=== PATIENT | female | born 1955 | race Caucasian/White ===

== ENCOUNTER 2022-12-22 14:46 | Outpatient (CLI) | payer MEDICARE, BC, SELFPAY ==
--- NOTE | 2022-12-22 15:00 | CRLHL7_ITS ---
For Patients: As a result of the Century Cures Act, medical imaging exams and procedure reports are released immediately into your electronic medical record. You may view this report before your referring provider. If you have questions, please contact your health care provider. INDICATION: RT LE SWELLING POST SPINAL FUSION COMPARISON: None. TECHNIQUE: A compression venous ultrasound exam was performed of the right lower extremity using rodarte-scale imaging, color Doppler and spectral Doppler analysis. FINDINGS: Sonographic imaging of the right lower extremity demonstrates normal compressibility and color Doppler venous blood flow within the common femoral vein, deep femoral vein, and the proximal greater saphenous vein. Within the thigh, the femoral vein is patent and compressible. At a lower level, the popliteal and posterior tibial veins also show normal compressibility and color Doppler venous blood flow. Limited imaging of the contralateral groin demonstrates a normal spectral waveform and color Doppler venous blood flow within the left common femoral vein. IMPRESSION: Normal venous ultrasound exam. No evidence of deep vein thrombosis within the right lower extremity. Dictated by Fitz Escalera MD @ 12/22/2022 3:57:58 PM (Electronically Signed)
== END 2022-12-22 14:47 | disposition home or self-care (01) ==
PROVIDERS: PCP Surgery
DX: M79.604 Pain in right leg (principal); M79.89 Other specified soft tissue disorders; Z98.1 Arthrodesis status
CPT/HCPCS: 93971

== ENCOUNTER 2023-07-29 09:43 | Outpatient (CLI) | payer MEDICARE, BC, SELFPAY ==
--- NOTE | 2023-07-29 10:00 | CRLHL7_ITS ---
For Patients: As a result of the Century Cures Act, medical imaging exams and procedure reports are released immediately into your electronic medical record. You may view this report before your referring provider. If you have questions, please contact your health care provider. Indication: LOW BACK PAIN S/P LUMBAR FUSION Technique: Noncontrast axial CT of the lumbar spine with coronal and sagittal reformats are provided. Comparison: No prior studies are available for comparison at this institution. Findings: Postoperative changes of L4-5 and L5-S1 laminectomy, posterior instrumented fusion with pedicle screws at L4 and S1 with bilateral iliac screw fixation. Interbody cage and screw fixation at L4-5 and L5-S1. No evidence of hardware complication. Mild exaggeration of lumbar lordosis. Retrolisthesis at L1-2 and L2-3. No fractures. No prevertebral or paraspinal edema. Atherosclerotic calcifications in the abdominal aorta. T12-L1: No significant spinal canal stenosis or neural foramen narrowing. L1-2: No significant spinal canal stenosis or neural foramen narrowing. L2-3: Severe disc height loss, slight retrolisthesis. No significant spinal canal stenosis or neural foramen narrowing. L3-4: Circumferential disc bulge. Mild spinal canal narrowing and mild bilateral neural foramina narrowing. L4-5: Postoperative changes. The spinal canal is adequate. Mild bilateral neural foramen narrowing. L5-S1: Postoperative changes. The spinal canal is adequate. Moderate bony left neural foramina narrowing. No right neural foramen narrowing. Impression: 1. No convincing radiographic evidence of acute osseous injury. 2. Mild scattered degenerative changes of the lumbar spine. 3. Postoperative changes of L4-5 and L5-S1 laminectomy, posterior instrumented fusion with pedicle screws at L4 and S1 with bilateral iliac screw fixation. Interbody cage and screw fixation at L4-5 and L5-S1. No evidence of hardware complication. Please note that all CT scans at this facility use dose modulation, iterative reconstruction, and/or weight-based dosing when appropriate to reduce radiation dose to as low as reasonably achievable. Dictated by Fitz Hobbs MD @ 07/29/2023 12:13:28 PM (Electronically Signed)
== END 2023-07-29 09:44 | disposition home or self-care (01) ==
LOC: CT 09:44
PROVIDERS: PCP Surgery; Visit Provider Physician Assistant
DX: M54.50 Low back pain, unspecified (principal); Z98.1 Arthrodesis status
CPT/HCPCS: 72131

== ENCOUNTER 2023-10-06 14:05 | Emergency (ER) | payer MEDICARE, BC, SELFPAY ==
[2023-10-06 14:17] VITALS: BP 134/81; PULSE 92; RESP 16; TEMP 36.4; O2SAT 96; BMI 35.2
--- NOTE | 2023-10-06 14:40 | CRLHL7_ITS ---
For Patients: As a result of the Century Cures Act, medical imaging exams and procedure reports are released immediately into your electronic medical record. You may view this report before your referring provider. If you have questions, please contact your health care provider. Indication: Postsurgical fluid collection. Technique: Ultrasound abdomen limited with color Doppler analysis. Comparison: None. Findings/Impression: In the right lumbar area of concern is a fluid collection measuring 7 x 3 x 2 cm. This likely represents a postoperative seroma. No inflammation associated with the fluid collection. No other abnormality. Dictated by Jesse Zavaleta MD @ 10/06/2023 3:33:35 PM (Electronically Signed)
--- NOTE | 2023-10-06 14:41 | ED_ITS ---
HPI - General Adult General Time Seen by Provider: 14:42 Date Seen: 10/06/23 Chief complaint: Back Injury/Pain Stated complaint: Ilieac edwin removed 09/29-now large lump back- Time Seen by Provider: 10/06/23 14:08 Source: patient Mode of arrival: ambulatory Limitations: no limitations History of Present Illness HPI narrative: [age] year white female that had back surgery about a year ago with a lumbar fusion, had recently increased pain in her right low back and had a screw moved and that was about within the last month. Since then she has had some swelling in the area she has had ice it, more recently she has developed a little bit of chills and fever. She notices the area is tender. She had this done at [facility] with . She has not contacted her surgical clinic. She is concerned about infection. The area is not really reddened but it is tender. And it has been swollen for period of time. No leg swelling or edema, bleeding or other problems. Related Data Home Medications Medication Instructions Recorded Confirmed ascorbate calcium (vitamin C) 814 mg PO 07/01/22 02/03/23 mg/gram oral powder (Vitamin C (ascorbate calcium)) lovastatin 40 mg tablet 40 mg PO .Bedtime 07/01/22 10/06/23 levothyroxine 125 mcg tablet 125 mcg PO DAILY 02/03/23 10/06/23 omeprazole 20 mg capsule,delayed 20 mg PO DAILY 10/06/23 10/06/23 release Previous Rx's Medication Instructions Recorded amoxicillin 875 mg-potassium 1 tab PO BID #14 tabs 10/06/23 clavulanate 125 mg tablet Allergies Allergy/AdvReac Type Severity Reaction Status Date / Time hydrocodone Allergy Intermediate heart Verified 10/06/23 14:15 racing Review of Systems Status of ROS: Reports: 6 or more systems reviewed and unremarkable except as noted in History and below [facility] Medical History Pain in lateral right lower extremity ?M79.604 - Pain in right leg (ICD-10) Osteopenia ?M85.80 - Other specified disorders of bone density and structure, unspecified site (ICD-10) Osteoarthritis of lumbar spine ?M47.816 - Spondylosis without myelopathy or radiculopathy, lumbar region (ICD-10) Normal Papanicolaou smear Mixed hyperlipidemia ?E78.2 - Mixed hyperlipidemia (ICD-10) Hypothyroidism ?E03.9 - Hypothyroidism, unspecified (ICD-10) History of amputation of right hand (1995) ?Z89.111 - Acquired absence of right hand (ICD-10) Gastroesophageal reflux disease with esophagitis ?K21.00 - Gastro-esophageal reflux disease with esophagitis, without bleeding (ICD-10) Amputation of right index finger ?S68.110A - Complete traumatic metacarpophalangeal amputation of right index finger, initial encounter (ICD-10) Surgical History H/O spinal fusion ?Z98.1 - Arthrodesis status (ICD-10) Status post tubal ligation ?Z98.51 - Tubal ligation status (ICD-10) History of lumpectomy of right breast ?Z98.890 - Other specified postprocedural states (ICD-10) History of colonoscopy (05/12/18) ?Z98.890 - Other specified postprocedural states (ICD-10) Family History Maternal Grandmother Breast cancer Diabetes Father Stroke Social History Narrative: Does not exercise Ex-smoker- quit 2017, 40 pack years , retired [employer], 3 adult kids Rarely consumes alcohol Stress due to illness of family member Smoking Status: Former smoker Exam Narrative: Exam Narrative: Objective: Vital signs unremarkable afebrile Patient is alert oriented no distress Postoperative changes noted in her lumbar spine, vertical incision, and also a right a vertical incision that is quite small preps for 5 cm long that overlies the area of swelling. Mildly tender to touch, not really warm or red. There is some fluctuance in the area but feels more fluid like then abscess . Const: Vital Signs, click to edit/add: Vital Signs - 24 hr 10/06/23 14:17 10/06/23 15:38 10/06/23 16:18 Temperature 97.5 F L Pulse Rate [Pulse Oximeter] 92 84 78 Respiratory Rate 16 20 20 Blood Pressure [Le ft Upper Arm] 134/81 113/80 122/72 Pulse Oximetry 96 96 96 Oxygen Delivery Me thod Room Air Room Air Room Air Course Vital Signs Vital signs: Initial Vital Signs Temperature 97.5 F L 10/06/23 14:17 Temperature Source Temporal Artery Scan 10/06/23 14:17 Pulse Rate 92 10/06/23 14:17 Pulse Rhythm Regular 10/06/23 14:17 Pulse Strength 3+ Normal 10/06/23 14:17 Respiratory Rate 16 10/06/23 14:17 Blood Pressure 134/81 10/06/23 14:17 Blood Pressure Mean 98 10/06/23 14:17 Blood Pressure Position Sitting 10/06/23 14:17 Pulse Oximetry 96 10/06/23 14:17 Oxygen Delivery Method Room Air 10/06/23 14:17 Vital Signs Temperature 97.5 F L 10/06/23 14:17 Pulse Rate 92 10/06/23 14:17 Respiratory Rate 16 10/06/23 14:17 Blood Pressure 134/81 10/06/23 14:17 Pulse Oximetry 96 10/06/23 14:17 Oxygen Delivery Method Room Air 10/06/23 14:17 Temperature 97.5 F L 10/06/23 14:17 Pulse Rate 78 10/06/23 16:18 Respiratory Rate 20 10/06/23 16:18 Blood Pressure 122/72 10/06/23 16:18 Pulse Oximetry 96 10/06/23 16:18 Oxygen Delivery Method Room Air 10/06/23 16:18 Medications Administered Medications: Discontinued Medications Generic Name Dose Route Start Last Admin Trade Name Freq PRN Reason Stop Dose Admin Ceftriaxone Sodium 500 mg 10/06/23 15:49 10/06/23 16:12 Ceftriaxone 500 Mg Vial IM 10/06/23 15:50 500 mg ONCE ONE Administration Lidocaine HCl 1 ml 10/06/23 15:49 10/06/23 16:12 Lidocaine 1% 5 Ml (Pf) 5 Ml Vial IM 1 ml DIRECTED PRN Administration Pain Medical Decision Making [facility] Narrative Medical decision making narrative: [age] year white female nondiabetic with 1 year history of spinal fusion, with recent 1 month ago so screw removal for increased pain. Now with persistent swelling and pain. Liquid be appropriate ultrasound the area, get blood cultures, get labs and CRP. Likely antibiotics and may need follow-up with spine surgery. Will see what the ultrasound shows well as her lab studies. Addendum 3:47 p.m.: The ultrasound does not show any inflammation around what appears to be a seroma. Her CRP is elevated but she did have a screw removed about 3 weeks ago from her back. She did have blood cultures done, the area does not appear warm or infected. However she could have some mild infection the seroma and I think covering her with a dose of Rocephin and then Augmentin orally for 7 days would be appropriate. I would recommend she see our spine surgeons regarding treatment of this seroma. Return if problems concerns difficulty or if blood cultures returned positive. She is comfortable this plan. She will contact the surgical team for her back tomorrow or later today when she goes home. Also given there is hardware in place I am not attempted to drain the area because it does not appear infected at this time Mk titus and when heat introduce infection around hardware implements. Lab Data Labs: Lab Results 10/06/23 Range/Units 14:53 WBC 10.62 (4.50-11.00) K/uL RBC 4.21 (4.00-5.20) m/uL Hgb 12.6 (12.0-16.0) gm/dL Hct 38.7 (33.0-51.0) % MCV 92 (80-100) fL MCH 30 (26-34) pg MCHC 33 (32-36) gm/dL RDW Coeff of Megan 15.3 (11.5-15.5) % Plt Count 371 (140-440) K/uL Neut % (Auto) 66.6 (42.0-72.0) % Lymph % (Auto) 21.9 (20-44) % [place] % (Auto) 7.8 (0.0-11.0) % Eos % (Auto) 2.6 (0.0-7.0) % Baso % (Auto) 0.3 (0.0-3.0) % Neut # (Auto) 7.07 H (1.7-7.0) K/uL Lymph # (Auto) 2.33 (0.90-2.90) K/uL [place] # (Auto) 0.80 (0.00-0.90) K/UL Eos # (Auto) 0.28 (0.00-0.50) K/uL Baso # (Auto) 0.03 (0.00-0.30) K/uL Abs Immat Gran (auto) 0.08 (0.00-0.30) K/uL Imm/Tot Granulo (auto) 0.8 % Sodium 143 (135-149) mmol/L Potassium 4.0 (3.6-5.1) mmol/L Chloride 109 (96-114) mmol/L Carbon Dioxide 26 (20-32) mmol/L Anion Gap 8 (7-15) mEq/L BUN 25 (7-30) mg/dL Creatinine 0.8 (0.5-1.5) mg/dL Estimated Creat Clear 46.50 Estimated GFR 80 ml/min Glucose 114 (60-115) mg/dL Calcium 9.3 (8.4-10.6) mg/dL C-Reactive Protein 14.5 H (0.5-1.0) mg/dL Discharge Plan Discharge Clinical Impression: Lumbar surgical wound fluid collection Patient Disposition: Home, Self-Care Condition: Stable Additional Instructions: Antibiotic injection in the ER, now Augmentin 2 times a day for the next 7 days. Call your surgical team and have an appointment within the next few days regarding this swelling, return to ED sooner problems or concerns. Activity Level: Light activity Discharge Diet: Regular Prescriptions: New amoxicillin-pot clavulanate 875-125 mg tablet 1 tab PO BID Qty: 14 0RF No Action lovastatin 40 mg tablet 40 mg PO .Bedtime Vitamin C (ascorbate calcium) 814 mg/gram powder PO levothyroxine 125 mcg tablet 125 mcg PO DAILY omeprazole 20 mg capsule,delayed release(DR/EC) 20 mg PO DAILY Follow Up/Referrals: Thang Rubio MD [Primary Care Provider] - Stand Alone Forms: NameMedia Info Instructions
[2023-10-06 15:05] LABS: Basophils Absolute Auto 0.03 K/uL (0.00-0.30); Basophils Percent Auto 0.3 % (0.0-3.0); Eosinophils Absolute Auto 0.28 K/uL (0.00-0.50); Eosinophils Percent Auto 2.6 % (0.0-7.0); Hematocrit 38.7 % (33.0-51.0); Hemoglobin* 12.6 gm/dL (12.0-16.0); Immature Granulocytes Abs Auto 0.08 K/uL (0.00-0.30); Immature Granulocytes Pct Auto 0.8 %; Lymphocytes Absolute Auto 2.33 K/uL (0.90-2.90); Lymphocytes Percent Auto 21.9 % (20-44); Mean Corpuscular HGB Conc 33 gm/dL (32-36); Mean Corpuscular Hemoglobin 30 pg (26-34); Mean Corpuscular Volume 92 fL (80-100); Monocytes Percent Auto 7.8 % (0.0-11.0); Neutrophils Absolute Auto 7.07 K/uL (1.7-7.0); Neutrophils Percent Auto 66.6 % (42.0-72.0); Platelet Count* 371 K/uL (140-440); RDW Coefficient of Variation % 15.3 % (11.5-15.5); Red Blood Count 4.21 m/uL (4.00-5.20); White Blood Count* 10.62 K/uL (4.50-11.00)
[2023-10-06 15:06] LABS: Slide Review Reflex No
[2023-10-06 15:17] LABS: Chloride* 109 mmol/L (96-114); Sodium* 143 mmol/L (135-149)
[2023-10-06 15:20] LABS: Anion Gap 8 mEq/L (7-15); Blood Urea Nitrogen* 25 mg/dL (7-30); Carbon Dioxide* 26 mmol/L (20-32); Creatinine* 0.8 mg/dL (0.5-1.5); Estimated Glomerular Filt Rate 80 ml/min
[2023-10-06 15:21] LABS: Calcium* 9.3 mg/dL (8.4-10.6); Glucose* 114 mg/dL (60-115)
[2023-10-06 15:35] LABS: C Reactive Protein* 14.5 mg/dL (0.5-1.0)
[2023-10-06 15:38] VITALS: BP 113/80; PULSE 84; RESP 20; O2SAT 96
[2023-10-06] MEDS: LIDOCAINE 1% 5 ml (pf) 5 ML VIAL 1 ML IM (16:12)
[2023-10-06] MEDS: cefTRIAXone 500 MG VIAL IM (16:12)
[2023-10-06 16:18] VITALS: BP 122/72; PULSE 78; RESP 20; O2SAT 96
== END 2023-10-06 16:19 | disposition home or self-care (01) ==
PROVIDERS: Emergency Provider Family Medicine; PCP Surgery
DX: L76.82 Other postprocedural complications of skin and subcutaneous tissue (principal)
CPT/HCPCS: 36415; 76604; 80048; 85025; 86140; 87040; 96372; 99283; 99284; J0696

== ENCOUNTER 2023-10-29 15:02 | Emergency (ER) | payer MEDICARE, BC, SELFPAY ==
[2023-10-29 15:15] VITALS: BP 164/94; PULSE 73; RESP 16; TEMP 36.7; O2SAT 97; BMI 35.4
--- NOTE | 2023-10-29 16:17 | ED_ITS ---
HPI - General Adult General Chief complaint: Back Injury/Pain Stated complaint: lower back pain Time Seen by Provider: 10/29/23 16:16 History of Present Illness HPI narrative: In Nov 2021 pt had a back fusion, in Aug 2024 she had an iliac screw removed and in Sep 2024 took abx for a possible infection in her back and today she states she is in excruciating pain and doesn 't know if another piece of her hardware is loose in her back? 08/31 lower back pain. 68-year-old woman presenting to the emergency department with complaint of low back pain particularly on the right side. Movement though markedly exacerbates her pain and gesturing through her hips and across the low back. Does not have radicular symptoms down her legs otherwise. Did have an L4-5 fusion she says in November of 2022. This also included SI joint fusion. She shows me x-rays on her phone. Was having some recurrence of pain and an August of this year had an iliac screw removed on the right side. In mid September was seen here and with concern of infection was initiated on a course of antibiotics. She was noted at that time to have a postoperative seroma on ultrasound. No fevers. No recent trauma or fall. Really has escalated pain over the last 48 hours. She has tried to contact her surgery clinic but has not heard back yet. Related Data Home Medications Medication Instructions Recorded Confirmed ascorbate calcium (vitamin C) 814 mg PO 07/01/22 10/25/23 mg/gram oral powder (Vitamin C (ascorbate calcium)) lovastatin 40 mg tablet 40 mg PO .Bedtime 07/01/22 10/25/23 levothyroxine 125 mcg tablet 125 mcg PO DAILY 02/03/23 10/25/23 omeprazole 20 mg capsule,delayed 20 mg PO DAILY 10/06/23 10/25/23 release Allergies Allergy/AdvReac Type Severity Reaction Status Date / Time hydrocodone Allergy Intermediate heart Verified 10/29/23 18:01 racing Review of Systems Status of ROS: Reports: 6 or more systems reviewed and unremarkable except as noted in History and below [facility] Medical History Pain in lateral right lower extremity ?M79.604 - Pain in right leg (ICD-10) Osteopenia ?M85.80 - Other specified disorders of bone density and structure, unspecified site (ICD-10) Osteoarthritis of lumbar spine ?M47.816 - Spondylosis without myelopathy or radiculopathy, lumbar region (ICD-10) Normal Papanicolaou smear Mixed hyperlipidemia ?E78.2 - Mixed hyperlipidemia (ICD-10) Hypothyroidism ?E03.9 - Hypothyroidism, unspecified (ICD-10) History of amputation of right hand (1995) ?Z89.111 - Acquired absence of right hand (ICD-10) Gastroesophageal reflux disease with esophagitis ?K21.00 - Gastro-esophageal reflux disease with esophagitis, without bleeding (ICD-10) Amputation of right index finger ?S68.110A - Complete traumatic metacarpophalangeal amputation of right index finger, initial encounter (ICD-10) Surgical History S/P hardware removal ?Z98.890 - Other specified postprocedural states (ICD-10) H/O spinal fusion ?Z98.1 - Arthrodesis status (ICD-10) Status post tubal ligation ?Z98.51 - Tubal ligation status (ICD-10) History of lumpectomy of right breast ?Z98.890 - Other specified postprocedural states (ICD-10) History of colonoscopy (05/12/18) ?Z98.890 - Other specified postprocedural states (ICD-10) Family History Maternal Grandmother Breast cancer Diabetes Father Stroke Social History Narrative: Does not exercise Ex-smoker- quit 2017, 40 pack years , retired [employer], 3 adult kids Rarely consumes alcohol Stress due to illness of family member Smoking Status: Former smoker Do you use any of these nicotine containing products: None Second hand tobacco smoke exposure: No How often do you have a drink containing alcohol: never AUDIT-C Alcohol total score: 0 Non-prescribed substance use: denies use service: No Exam Narrative: Exam Narrative: Pleasant. Speaking easily. Breathing easily. Heart is in a regular rate and rhythm. She is seated side saddle on the exam bed.. Straight leg raise is negative bilaterally. This has been reported to cause increased pain through her back though. Skin is warm and dry. Large surgical and midline incision through the low thoracic to lumbar spine. Is also a 4 or so cm incision over the right SI area. Well-healed. Not draining. There is fullness subcutaneously without fluctuance appreciable extending along the scar. Subcutaneous would seem to be an inch by 2-1/2 inches. No induration/erythema/calor. She is not complaining of pain to palpation over her low back or over the incision. Const: Vital Signs, click to edit/add: Vital Signs - 24 hr 10/29/23 15:15 Temperature 98.0 F Pulse Rate [Right Pulse Oximeter] 73 Respiratory Rate 16 Blood Pressure [Ri ght Upper Arm] 164/94 H Pulse Oximetry 97 Oxygen Delivery Me thod Room Air Documenting provider has reviewed patient's vital signs: yes Course Vital Signs Vital signs: Initial Vital Signs Temperature 98.0 F 10/29/23 15:15 Temperature Source Temporal Artery Scan 10/29/23 15:15 Pulse Rate 73 10/29/23 15:15 Pulse Rhythm Regular 10/29/23 15:15 Pulse Strength 3+ Normal 10/29/23 15:15 Respiratory Rate 16 10/29/23 15:15 Blood Pressure 164/94 H 10/29/23 15:15 Blood Pressure Mean 117 H 10/29/23 15:15 Blood Pressure Position Sitting 10/29/23 15:15 Pulse Oximetry 97 10/29/23 15:15 Oxygen Delivery Method Room Air 10/29/23 15:15 Vital Signs Temperature 98.0 F 10/29/23 15:15 Pulse Rate 73 10/29/23 15:15 Respiratory Rate 16 10/29/23 15:15 Blood Pressure 164/94 H 10/29/23 15:15 Pulse Oximetry 97 10/29/23 15:15 Oxygen Delivery Method Room Air 10/29/23 15:15 Temperature 98.0 F 10/29/23 15:15 Pulse Rate 73 10/29/23 15:15 Respiratory Rate 16 10/29/23 15:15 Blood Pressure 164/94 H 10/29/23 15:15 Pulse Oximetry 97 10/29/23 15:15 Oxygen Delivery Method Room Air 10/29/23 15:15 Medications Administered Medications: Discontinued Medications Generic Name Dose Route Start Last Admin Trade Name Freq PRN Reason Stop Dose Admin Ceftriaxone Sodium 1 gm 10/29/23 21:51 10/29/23 21:55 Ceftriaxone 1 Gm Vial IM 10/29/23 21:52 1 gm ONCE ONE Administration Sodium Chloride 1,000 mls @ 1,000 mls/hr 10/29/23 17:29 10/29/23 19:46 0.9 % Sodium Chloride 1000 Ml IV 10/29/23 18:28 Infused .Q1H ONE Infusion Ibuprofen 600 mg 10/29/23 16:36 10/29/23 16:59 Ibuprofen 200 Mg Tablet PO 10/29/23 16:37 600 mg ONCE ONE Administration Lidocaine HCl 2.1 ml 10/29/23 21:51 10/29/23 21:55 Lidocaine 1% 5 Ml (Pf) 5 Ml Vial IM 2.1 ml DIRECTED PRN Administration Pain Oxycodone/Acetaminophen 2 tab 10/29/23 16:37 10/29/23 16:58 Oxycodone/Apap 5-325 Tablet PO 10/29/23 16:38 2 tab ONCE ONE Administration Medical Decision Making MDM Narrative Medical decision making narrative: Would appear to have flare of underlying pain. Has not demonstrated infectious symptoms otherwise. The prior described seroma does not seem to be present. Will treat pain and look for evidence of infection in labs. Now shifting SI joint? Underlying history of PMR I suppose this could be flaring/amplifying as well however localized to one area would be unusual. White count is notably elevated since last checked here. X-ray looks to have maintained SI joint. Think will have to do CT contrasted lumbar spine and pelvis. On reassessment for pain, overall improved but more comfortable standing. I did review CT images. Looks to be a subcutaneous abscess in the area of the scar. Thickened and rim enhancing. This does track deeper toward the sacrum. Radiology over-read below TECHNIQUE: Multiplanar CT examination of the abdomen and pelvis were acquired after the administration of 101 mL Isovue 370 intravenously and oral contrast. COMPARISON: CT lumbar spine 07/29/2023. FINDINGS: Visualized bowel: Visualized bowel is unremarkable. No bowel obstruction. Trace left-sided colonic diverticulosis. Pelvic organs: Calcified fibroid uterus. Bladder: Unremarkable. Peritoneum: No free fluid or pneumoperitoneum. No drainable collections identified. Vessels: No aneurysms. Portal vein remains patent. Severe atherosclerotic calcifications of the abdominal aorta. Lymph Nodes: No lymphadenopathy. Abdominal Wall/Soft Tissues: Unremarkable. Bones: Please refer to the separately dictated report on the CT of the lumbar spine for discussion. Redemonstrates spinal fixation hardware. Patient has undergone interval removal of the right iliac screw. No suspicious osseous erosions. Abdominal wall/soft tissues: There is a thick-walled peripherally enhancing fluid collection measuring 5.7 x 1.7 cm in the posterior right paraspinal soft tissues in association with the ghost tract from the removed right iliac screw there is adjacent inflammatory changes in the subcutaneous fat. IMPRESSION: Findings compatible with a 5.7 cm soft tissue abscess in association with the interval removal of the prior right iliac screw. TECHNIQUE: CT of the lumbar spine with 101 cc of Isovue 370 intravenous contrast. Coronal and sagittal reformats are included. COMPARISON: Lumbar spine CT from 07/29/2023. FINDINGS: Five lumbar type vertebral bodies, with the last fully formed disc space referred to as L5-S1. Mildly accentuated lumbar lordosis. Mild lower lumbar levoconvex scoliosis. No acute fractures. Postsurgical changes of L4-5/L5-S1 discectomies with interbody spacer placement. Mature osseous integration of the spacer graft with the adjacent endplates. L5-S1 anterior plate and screw fixation plate as well. Postsurgical changes of L4 through S1 and left iliac wing dorsal lateral instrumentation. No evidence of hardware loosening. Immature bone graft along the posterior elements. Prominent right iliac wing ghost track from explanted screw. Posterior element resections for spinal decompression at L4 through S1 as well. There is an oblong peripherally enhancing fluid collection within the right posterior paraspinous soft tissues with deep extension to the margin of the right iliac fixation screw explantation site. In measures 28 x 62 millimeters in axial plane and 61 millimeters in craniocaudal plane. Ill-defined fluid/inflammation is present within the midline posterior lumbar soft tissues. Atherosclerotic abdominal aorta and branch vessels. Disc/endplates: T11-12 and T12-L1 moderate disc height loss, disc vacuum phenomenon and degenerative endplate remodeling. L2-3 advanced disc height loss and degenerative endplate remodeling. Mild disc degeneration elsewhere. Findings at individual levels as follows: T11-12: Mild disc bulge. No spinal canal or neural foraminal stenosis. T12-L1: Mild disc bulge. No spinal canal or neural foraminal stenosis. L1-2: Mild disc bulge. No spinal canal or neural foraminal stenosis. L2-3: Trace retrolisthesis. Mild disc bulge with overlying osteophytic ridging. Bilateral facet arthrosis. Mild left neural foraminal stenosis. No right neural foraminal stenosis or spinal canal stenosis. L3-4: Mild disc bulge. No spinal canal or neural foraminal stenosis. L4-5: Postop changes. Spinal canal decompressed dorsally. L5-S1: Postop changes. Spinal canal decompressed dorsally. SI joints and Sacrum: Bilateral SI joint arthrosis. IMPRESSION: 1. No acute fractures or other acute osseous abnormalities. 2. Since prior lumbar spine CT, interval explantation of a right iliac wing fixation screw. There is an oblong ring-enhancing collection within the soft tissues posterior to the iliac wing which measures up to 62 millimeters. It is technically nonspecific although given the history of elevated white count abscess/infection should be considered. 3. Otherwise stable postsurgical changes of L4 through S1 and left iliac wing spinal fusion at L4 through S1 decompressive posterior element resections. No hardware loosening. Postop changes posterior paraspinal soft tissues at midline, with overall similar to slightly increased amount of inflammatory change compared to the prior exam. TECHNIQUE: Pelvis radiograph, 1 view. COMPARISON: Lumbar spine CT 07/29/2023. FINDINGS: Ghost tract from interval removal of a right sacroiliac joint screw. Redemonstrated posterior instrumented spinal fixation and ACDF of the visualized lower lumbar spine, and left sacroiliac joint screw. No acute fractures or dislocation. Degenerative changes of the bilateral hip joints. No diastasis of the pubic symphysis. IMPRESSION : Interval removal of the right sacroiliac joint screw. No acute fractures or dislocation identified. Part of this is certainly superficial but given adjacent nature of what appears to be an abscess, to the sacrum and ?ghost tract anticipating conversation with neuro surgical provider Images were sent for review. After extended time waiting for call back from on- call neurosurgery, including calls to other physicians, Stephanie informed that she would be leaving the emergency department. ?I just cannot do this anymore?. She noted that she plans to follow-up at surgery [facility] emergency de partment in the morning. Was vitally well during time in the emergency department here. Given an injection of Rocephin. This should provide at least some antibiotic coverage until follow-up tomorrow. Around 15 minutes after patient departure I did get a call back from Neurosurgery PA. No further recommendations other than noting potential fluid collection postop. See patient discharge plan Lab Data Lab results reviewed: Yes I reviewed the patient's lab results Labs: Lab Results 10/29/23 10/29/23 10/29/23 Range/Units 16:48 17:29 17:54 WBC 14.64 H (4.50-11.00) K/uL RBC 4.85 (4.00-5.20) m/uL Hgb 14.3 (12.0-16.0) gm/dL Hct 43.8 (33.0-51.0) % MCV 90 (80-100) fL MCH 30 (26-34) pg MCHC 33 (32-36) gm/dL RDW Coeff of Megan 15.8 H (11.5-15.5) % Plt Count 420 (140-440) K/uL Neut % (Auto) 70.0 (42.0-72.0) % Lymph % (Auto) 18.8 L (20-44) % Otero % (Auto) 9.8 (0.0-11.0) % Eos % (Auto) 0.5 (0.0-7.0) % Baso % (Auto) 0.1 (0.0-3.0) % Neut # (Auto) 10.20 H (1.7-7.0) K/uL Lymph # (Auto) 2.80 (0.90-2.90) K/uL Otero # (Auto) 1.40 H (0.00-0.90) K/UL Eos # (Auto) 0.10 (0.00-0.50) K/uL Baso # (Auto) 0.00 (0.00-0.30) K/uL Abs Immat Gran (auto) 0.10 (0.00-0.30) K/uL Imm/Tot Granulo (auto) 0.8 % ESR 33 H (2-20) mm/hr Sodium 140 (135-149) mmol/L Potassium 4.8 (3.6-5.1) mmol/L Chloride 104 (96-114) mmol/L Carbon Dioxide 24 (20-32) mmol/L Anion Gap 12 (7-15) mEq/L BUN 28 (7-30) mg/dL Creatinine 0.7 (0.5-1.5) mg/dL Estimated Creat Clear 46.50 Estimated GFR 94 ml/min Glucose 119 H (60-115) mg/dL Calcium 10.7 H (8.4-10.6) mg/dL C-Reactive Protein 4.3 H (0.5-1.0) mg/dL Lab Acknowledgement Test Added Discharge Plan Discharge Clinical Impression: Abscess after procedure Patient Disposition: Home w/ Parent or Adult Condition: Stable Additional Instructions: I am in agreement with your plan to present to where you had this surgery tomorrow morning. The [facility] should offer some coverage for you until then. We sent images up to the [employer] PACS system and take this read of the scans we did here today along with a copy of a disc of the images. Each Percocet from [employer] has 325 mg of acetaminophen in it. You can take up to 1000 mg of acetaminophen per dose every 6 hours. Not to exceed 4000 mg of acetaminophen in 24 hours. Prescriptions: No Action lovastatin 40 mg tablet 40 mg PO .Bedtime Vitamin C (ascorbate calcium) 814 mg/gram powder PO levothyroxine 125 mcg tablet 125 mcg PO DAILY omeprazole 20 mg capsule,delayed release(DR/EC) 20 mg PO DAILY Follow Up/Referrals: Thang Rubio MD [Primary Care Provider] - Stand Alone Forms: [employer] Info Instructions
[2023-10-29] MEDS: OxyCODONE/APAP 5-325 TABLET 2 TAB PO (16:58)
[2023-10-29] MEDS: IBUPROFEN 200 MG TABLET 600 MG PO (16:59)
--- NOTE | 2023-10-29 17:05 | CRLHL7_ITS ---
For Patients: As a result of the Century Cures Act, medical imaging exams and procedure reports are released immediately into your electronic medical record. You may view this report before your referring provider. If you have questions, please contact your health care provider. INDICATION: Low back pain status post removal of the previous right sacroiliac joint fixation. TECHNIQUE: Pelvis radiograph, 1 view. COMPARISON: Lumbar spine CT 07/29/2023. FINDINGS: Ghost tract from interval removal of a right sacroiliac joint screw. Redemonstrated posterior instrumented spinal fixation and ACDF of the visualized lower lumbar spine, and left sacroiliac joint screw. No acute fractures or dislocation. Degenerative changes of the bilateral hip joints. No diastasis of the pubic symphysis. IMPRESSION : Interval removal of the right sacroiliac joint screw. No acute fractures or dislocation identified. Dictated by David Daugherty MD @ 10/29/2023 6:18:20 PM (Electronically Signed)
[2023-10-29 17:07] LABS: Basophils Percent Auto 0.1 % (0.0-3.0); Eosinophils Percent Auto 0.5 % (0.0-7.0); Hematocrit 43.8 % (33.0-51.0); Hemoglobin* 14.3 gm/dL (12.0-16.0); Immature Granulocytes Pct Auto 0.8 %; Lymphocytes Percent Auto 18.8 % (20-44); Mean Corpuscular HGB Conc 33 gm/dL (32-36); Mean Corpuscular Hemoglobin 30 pg (26-34); Mean Corpuscular Volume 90 fL (80-100); Monocytes Percent Auto 9.8 % (0.0-11.0); Platelet Count* 420 K/uL (140-440); RDW Coefficient of Variation % 15.8 % (11.5-15.5); Red Blood Count 4.85 m/uL (4.00-5.20); White Blood Count* 14.64 K/uL (4.50-11.00)
[2023-10-29 17:17] LABS: Slide Review Reflex No
--- NOTE | 2023-10-29 17:27 | CRLHL7_ITS ---
For Patients: As a result of the Century Cures Act, medical imaging exams and procedure reports are released immediately into your electronic medical record. You may view this report before your referring provider. If you have questions, please contact your health care provider. INDICATION: Low back pain. Elevated white count. TECHNIQUE: CT of the lumbar spine with 101 cc of Isovue 370 intravenous contrast. Coronal and sagittal reformats are included. COMPARISON: Lumbar spine CT from 07/29/2023. FINDINGS: Five lumbar type vertebral bodies, with the last fully formed disc space referred to as L5-S1. Mildly accentuated lumbar lordosis. Mild lower lumbar levoconvex scoliosis. No acute fractures. Postsurgical changes of L4-5/L5-S1 discectomies with interbody spacer placement. Mature osseous integration of the spacer graft with the adjacent endplates. L5-S1 anterior plate and screw fixation plate as well. Postsurgical changes of L4 through S1 and left iliac wing dorsal lateral instrumentation. No evidence of hardware loosening. Immature bone graft along the posterior elements. Prominent right iliac wing ghost track from explanted screw. Posterior element resections for spinal decompression at L4 through S1 as well. There is an oblong peripherally enhancing fluid collection within the right posterior paraspinous soft tissues with deep extension to the margin of the right iliac fixation screw explantation site. In measures 28 x 62 millimeters in axial plane and 61 millimeters in craniocaudal plane. Ill-defined fluid/inflammation is present within the midline posterior lumbar soft tissues. Atherosclerotic abdominal aorta and branch vessels. Disc/endplates: T11-12 and T12-L1 moderate disc height loss, disc vacuum phenomenon and degenerative endplate remodeling. L2-3 advanced disc height loss and degenerative endplate remodeling. Mild disc degeneration elsewhere. Findings at individual levels as follows: T11-12: Mild disc bulge. No spinal canal or neural foraminal stenosis. T12-L1: Mild disc bulge. No spinal canal or neural foraminal stenosis. L1-2: Mild disc bulge. No spinal canal or neural foraminal stenosis. L2-3: Trace retrolisthesis. Mild disc bulge with overlying osteophytic ridging. Bilateral facet arthrosis. Mild left neural foraminal stenosis. No right neural foraminal stenosis or spinal canal stenosis. L3-4: Mild disc bulge. No spinal canal or neural foraminal stenosis. L4-5: Postop changes. Spinal canal decompressed dorsally. L5-S1: Postop changes. Spinal canal decompressed dorsally. SI joints and Sacrum: Bilateral SI joint arthrosis. IMPRESSION: 1. No acute fractures or other acute osseous abnormalities. 2. Since prior lumbar spine CT, interval explantation of a right iliac wing fixation screw. There is an oblong ring-enhancing collection within the soft tissues posterior to the iliac wing which measures up to 62 millimeters. It is technically nonspecific although given the history of elevated white count abscess/infection should be considered. 3. Otherwise stable postsurgical changes of L4 through S1 and left iliac wing spinal fusion at L4 through S1 decompressive posterior element resections. No hardware loosening. Postop changes posterior paraspinal soft tissues at midline, with overall similar to slightly increased amount of inflammatory change compared to the prior exam. Please note that all CT scans at this facility use dose modulation, iterative reconstruction, and/or weight-based dosing when appropriate to reduce radiation dose to as low as reasonably achievable. Dictated by Carlos Goins MD @ 10/29/2023 6:48:54 PM (Electronically Signed)
--- NOTE | 2023-10-29 17:27 | CRLHL7_ITS ---
For Patients: As a result of the Century Cures Act, medical imaging exams and procedure reports are released immediately into your electronic medical record. You may view this report before your referring provider. If you have questions, please contact your health care provider. INDICATION: Low back pain, leukocytosis, status post interval removal of a right iliac screw. TECHNIQUE: Multiplanar CT examination of the abdomen and pelvis were acquired after the administration of 101 mL Isovue 370 intravenously and oral contrast. COMPARISON: CT lumbar spine 07/29/2023. FINDINGS: Visualized bowel: Visualized bowel is unremarkable. No bowel obstruction. Trace left-sided colonic diverticulosis. Pelvic organs: Calcified fibroid uterus. Bladder: Unremarkable. Peritoneum: No free fluid or pneumoperitoneum. No drainable collections identified. Vessels: No aneurysms. Portal vein remains patent. Severe atherosclerotic calcifications of the abdominal aorta. Lymph Nodes: No lymphadenopathy. Abdominal Wall/Soft Tissues: Unremarkable. Bones: Please refer to the separately dictated report on the CT of the lumbar spine for discussion. Redemonstrates spinal fixation hardware. Patient has undergone interval removal of the right iliac screw. No suspicious osseous erosions. Abdominal wall/soft tissues: There is a thick-walled peripherally enhancing fluid collection measuring 5.7 x 1.7 cm in the posterior right paraspinal soft tissues in association with the ghost tract from the removed right iliac screw there is adjacent inflammatory changes in the subcutaneous fat. IMPRESSION: Findings compatible with a 5.7 cm soft tissue abscess in association with the interval removal of the prior right iliac screw. Please note that all CT scans at this facility use dose modulation, iterative reconstruction, and/or weight-based dosing when appropriate to reduce radiation dose to as low as reasonably achievable. Dictated by David Daugherty MD @ 10/29/2023 6:46:06 PM (Electronically Signed)
[2023-10-29] MEDS: 0.9 % SODIUM CHLORIDE 1000 ml 1,000 ML IV (17:38)
[2023-10-29 17:47] LABS: Chloride* 104 mmol/L (96-114); Sodium* 140 mmol/L (135-149)
[2023-10-29 17:48] LABS: Potassium* 4.8 mmol/L (3.6-5.1)
[2023-10-29 17:50] LABS: Creatinine* 0.7 mg/dL (0.5-1.5); Estimated Glomerular Filt Rate 94 ml/min
[2023-10-29 17:51] LABS: Anion Gap 12 mEq/L (7-15); Blood Urea Nitrogen* 28 mg/dL (7-30); Calcium* 10.7 mg/dL (8.4-10.6); Carbon Dioxide* 24 mmol/L (20-32); Glucose* 119 mg/dL (60-115)
[2023-10-29 17:54] LABS: C Reactive Protein* 4.3 mg/dL (0.5-1.0)
[2023-10-29 18:55] LABS: Erythrocyte SedimentationRate* 33 mm/hr (2-20)
[2023-10-29] MEDS: cefTRIAXone 1 GM VIAL IM (21:55)
[2023-10-29] MEDS: LIDOCAINE 1% 5 ml (pf) 5 ML VIAL 2.1 ML IM (21:55)
--- NOTE | 2023-11-04 12:45 | ONC.NURNOTE ---
Received phone call from discharge planning at [facility]. Patient to be discharged on home antibiotics and requesting infusions to be done in [facility]. Faxed form to Becca in discharge planning with infusion order set, along with requested information. [employer]: [phone],
== END 2023-10-29 22:07 | disposition home or self-care (01) ==
PROVIDERS: Emergency Provider Family Medicine; PCP Surgery
DX: L02.212 Cutaneous abscess of back [any part, except buttock and flank] (principal); Z98.890 Other specified postprocedural states
CPT/HCPCS: 36415; 72132; 72170; 72193; 80048; 85025; 85651; 86140; 96372; 99284; A9270; J0696; J7030; Q9967

== ENCOUNTER 2023-11-25 13:00 | Outpatient (RCR) | payer MEDICARE, BC, SELFPAY ==
[2023-11-06] MEDS: DAPTOmycin 50 MG/ML inj 560 MG IVP (13:22)
[2023-11-06] MEDS: cefTRIAXone 2 GM in 0.9 % SODIUM CHLORIDE Mini-bag 100 ML IVPB (13:25)
[2023-11-07 10:54] VITALS: BP 140/85; PULSE 70; RESP 20; O2SAT 98
[2023-11-07] MEDS: DAPTOmycin 50 MG/ML inj 560 MG IVP (10:56)
[2023-11-07] MEDS: cefTRIAXone 2 GM in 0.9 % SODIUM CHLORIDE Mini-bag 100 ML IVPB (10:57)
[2023-11-07 11:40] VITALS: BP 151/55; PULSE 66; RESP 20; TEMP 36.2; O2SAT 96
[2023-11-08 13:04] VITALS: BP 148/84; PULSE 75; RESP 16; TEMP 37.3; O2SAT 94
[2023-11-08] MEDS: SODIUM CHLORIDE 0.9 % (FLUSH) 10 ML SYRINGE IVF (13:10)
[2023-11-08] MEDS: 0.9 % SODIUM CHLORIDE 250 ml IV (13:10)
[2023-11-08] MEDS: cefTRIAXone 2 GM in 0.9 % SODIUM CHLORIDE Mini-bag 100 ML IVPB (13:34)
[2023-11-08] MEDS: DAPTOmycin 50 MG/ML inj 500 MG IVP (14:10)
[2023-11-09 12:57] VITALS: BP 134/81; PULSE 102; RESP 16; TEMP 36.2; O2SAT 95
[2023-11-09] MEDS: 0.9 % SODIUM CHLORIDE 250 ml IV (13:13)
[2023-11-09] MEDS: cefTRIAXone 2 GM in 0.9 % SODIUM CHLORIDE Mini-bag 100 ML IVPB (13:13)
[2023-11-09] MEDS: SODIUM CHLORIDE 0.9 % (FLUSH) 10 ML SYRINGE IVF ×2 (13:14→14:13)
[2023-11-09] MEDS: DAPTOmycin 50 MG/ML inj 500 MG IVP (14:10)
[2023-11-10 12:07] VITALS: BP 138/84; PULSE 83; RESP 16; TEMP 36.9; O2SAT 96
[2023-11-10] MEDS: cefTRIAXone 2 GM in 0.9 % SODIUM CHLORIDE Mini-bag 100 ML IVPB (12:13)
[2023-11-10] MEDS: 0.9 % SODIUM CHLORIDE 250 ml IV (12:13)
[2023-11-10] MEDS: SODIUM CHLORIDE 0.9 % (FLUSH) 10 ML SYRINGE IVF (12:14)
[2023-11-10] MEDS: DAPTOmycin 50 MG/ML inj 500 MG IVP (13:04)
[2023-11-11 13:19] VITALS: BP 127/79; PULSE 81; RESP 18; TEMP 36.6; O2SAT 96
[2023-11-11] MEDS: DAPTOmycin 50 MG/ML inj 500 MG IVP (13:39)
[2023-11-11] MEDS: SODIUM CHLORIDE 0.9 % (FLUSH) 10 ML SYRINGE IVF (13:44)
[2023-11-11] MEDS: cefTRIAXone 2 GM in 0.9 % SODIUM CHLORIDE Mini-bag 100 ML IVPB (13:44)
[2023-11-12 13:00] VITALS: BP 120/72; PULSE 90; RESP 16; TEMP 36.4; O2SAT 96
[2023-11-12] MEDS: cefTRIAXone 2 GM in 0.9 % SODIUM CHLORIDE Mini-bag 100 ML IVPB (13:13)
[2023-11-12] MEDS: 0.9 % SODIUM CHLORIDE 250 ml IV (13:13)
[2023-11-12] MEDS: SODIUM CHLORIDE 0.9 % (FLUSH) 10 ML SYRINGE IVF ×2 (13:13→14:01)
[2023-11-12] MEDS: DAPTOmycin 50 MG/ML inj 500 MG IVP (13:13)
[2023-11-12 13:32] LABS: Basophils Absolute Auto 0.03 K/uL (0.00-0.30); Basophils Percent Auto 0.3 % (0.0-3.0); Eosinophils Absolute Auto 0.27 K/uL (0.00-0.50); Eosinophils Percent Auto 2.5 % (0.0-7.0); Hematocrit 34.6 % (33.0-51.0); Hemoglobin* 10.9 gm/dL (12.0-16.0); Immature Granulocytes Abs Auto 0.02 K/uL (0.00-0.30); Immature Granulocytes Pct Auto 0.2 %; Lymphocytes Percent Auto 16.7 % (20-44); Mean Corpuscular HGB Conc 32 gm/dL (32-36); Mean Corpuscular Hemoglobin 29 pg (26-34); Mean Corpuscular Volume 92 fL (80-100); Monocytes Percent Auto 6.3 % (0.0-11.0); Platelet Count* 514 K/uL (140-440); RDW Coefficient of Variation % 15.4 % (11.5-15.5); Red Blood Count 3.76 m/uL (4.00-5.20); White Blood Count* 10.87 K/uL (4.50-11.00)
[2023-11-12 13:47] LABS: Chloride* 102 mmol/L (96-114); Sodium* 138 mmol/L (135-149)
[2023-11-12 13:48] LABS: Potassium* 3.8 mmol/L (3.6-5.1)
[2023-11-12 13:50] LABS: Anion Gap 10 mEq/L (7-15); Aspartate Amino Transferase* 26 U/L (12-35); Bilirubin Total* 0.2 mg/dL (0.1-1.5); Carbon Dioxide* 26 mmol/L (20-32); Creatinine* 0.5 mg/dL (0.5-1.5); Est. Creatinine Clearance* 44.54; Estimated Glomerular Filt Rate 102 ml/min
[2023-11-12 13:51] LABS: Alanine Aminotransferase* 14 U/L (4-35); Alkaline Phosphatase* 59 U/L (40-150); Blood Urea Nitrogen* 17 mg/dL (7-30); Calcium* 9.1 mg/dL (8.4-10.6); Creatine Kinase* 49 U/L (41-117); Glucose* 132 mg/dL (60-115); Total Protein* 7.1 g/dL (6.0-8.3)
[2023-11-12 13:53] LABS: C Reactive Protein* 4.6 mg/dL (0.5-1.0)
[2023-11-12 13:54] LABS: Slide Review Reflex Yes
[2023-11-12 14:14] LABS: Slide Review Acceptable Review (Acceptable)
[2023-11-13 13:00] VITALS: BP 138/71; PULSE 94; RESP 16; TEMP 36.1; O2SAT 97
[2023-11-13] MEDS: cefTRIAXone 2 GM in 0.9 % SODIUM CHLORIDE Mini-bag 100 ML IVPB (13:00)
[2023-11-13] MEDS: SODIUM CHLORIDE 0.9 % (FLUSH) 10 ML SYRINGE IVF (13:01)
[2023-11-13] MEDS: 0.9 % SODIUM CHLORIDE 250 ml IV (13:01)
[2023-11-13] MEDS: DAPTOmycin 50 MG/ML inj 500 MG IVP (13:45)
[2023-11-14] MEDS: cefTRIAXone 2 GM in 0.9 % SODIUM CHLORIDE Mini-bag 100 ML IVPB (13:04)
[2023-11-14] MEDS: SODIUM CHLORIDE 0.9 % (FLUSH) 10 ML SYRINGE IVF (13:05)
[2023-11-14] MEDS: 0.9 % SODIUM CHLORIDE 250 ml IV (13:05)
[2023-11-14] MEDS: DAPTOmycin 50 MG/ML inj 500 MG IVP (13:05)
[2023-11-14 13:08] VITALS: BP 126/83; PULSE 85; RESP 18; TEMP 35.7; O2SAT 95
[2023-11-14 13:55] VITALS: BP 117/79; PULSE 82; RESP 18; TEMP 36.8; O2SAT 94
--- NOTE | 2023-11-14 13:57 | PC.NURSE ---
[id number]- Patient arrives to unit for infusion. Existing PICC line utilized. Asymptomatic, intact, patent. Patient tolerates well. Leaves via wheelchair, also ambulatory, with family member.
[2023-11-15 12:45] VITALS: BP 136/78; PULSE 79; RESP 18; TEMP 36.7; O2SAT 95
[2023-11-15] MEDS: DAPTOmycin 50 MG/ML inj 500 MG IVP (12:50)
[2023-11-15] MEDS: SODIUM CHLORIDE 0.9 % (FLUSH) 10 ML SYRINGE IVF (13:00)
[2023-11-15 13:40] VITALS: BP 129/83; PULSE 82; RESP 16; TEMP 36.2; O2SAT 96
[2023-11-15] MEDS: 0.9 % SODIUM CHLORIDE 250 ml IV (13:51)
[2023-11-15] MEDS: cefTRIAXone 2 GM in 0.9 % SODIUM CHLORIDE Mini-bag 100 ML IVPB (13:51)
[2023-11-16 12:56] VITALS: BP 134/73; PULSE 91; RESP 18; TEMP 36.6; O2SAT 94
[2023-11-16] MEDS: 0.9 % SODIUM CHLORIDE 250 ml IV (13:14)
[2023-11-16] MEDS: SODIUM CHLORIDE 0.9 % (FLUSH) 10 ML SYRINGE IVF ×3 (13:14→14:23)
[2023-11-16] MEDS: DAPTOmycin 50 MG/ML inj 500 MG IVP (13:40)
[2023-11-16] MEDS: cefTRIAXone 2 GM in 0.9 % SODIUM CHLORIDE Mini-bag 100 ML IVPB (13:45)
[2023-11-17 12:00] VITALS: BP 115/79; PULSE 96; RESP 16; TEMP 36; O2SAT 96
[2023-11-17] MEDS: DAPTOmycin 50 MG/ML inj 500 MG IVP (12:00)
[2023-11-17] MEDS: cefTRIAXone 2 GM in 0.9 % SODIUM CHLORIDE Mini-bag 100 ML IVPB (12:15)
[2023-11-17] MEDS: 0.9 % SODIUM CHLORIDE 250 ml IV (15:51)
[2023-11-17] MEDS: SODIUM CHLORIDE 0.9 % (FLUSH) 10 ML SYRINGE IVF (15:51)
[2023-11-18 12:49] VITALS: BP 132/88; PULSE 90; RESP 18; TEMP 36.3; O2SAT 98
[2023-11-18] MEDS: 0.9 % SODIUM CHLORIDE 250 ml IV (13:00)
[2023-11-18] MEDS: cefTRIAXone 2 GM in 0.9 % SODIUM CHLORIDE Mini-bag 100 ML IVPB (13:09)
[2023-11-18] MEDS: DAPTOmycin 50 MG/ML inj 500 MG IVP (13:42)
[2023-11-18] MEDS: SODIUM CHLORIDE 0.9 % (FLUSH) 10 ML SYRINGE IVF (13:47)
[2023-11-19 13:04] VITALS: BP 123/80; PULSE 99; RESP 16; TEMP 35.9; O2SAT 99
[2023-11-19] MEDS: cefTRIAXone 2 GM in 0.9 % SODIUM CHLORIDE Mini-bag 100 ML IVPB (13:26)
[2023-11-19] MEDS: SODIUM CHLORIDE 0.9 % (FLUSH) 10 ML SYRINGE IVF (13:27)
[2023-11-19] MEDS: 0.9 % SODIUM CHLORIDE 250 ml IV (13:27)
[2023-11-19 13:48] LABS: Basophils Absolute Auto 0.04 K/uL (0.00-0.30); Basophils Percent Auto 0.5 % (0.0-3.0); Eosinophils Percent Auto 2.4 % (0.0-7.0); Hematocrit 36.1 % (33.0-51.0); Hemoglobin* 11.4 gm/dL (12.0-16.0); Immature Granulocytes Abs Auto 0.01 K/uL (0.00-0.30); Immature Granulocytes Pct Auto 0.1 %; Lymphocytes Absolute Auto 1.64 K/uL (0.90-2.90); Lymphocytes Percent Auto 20.1 % (20-44); Mean Corpuscular HGB Conc 32 gm/dL (32-36); Mean Corpuscular Hemoglobin 29 pg (26-34); Mean Corpuscular Volume 91 fL (80-100); Monocytes Percent Auto 8.1 % (0.0-11.0); Neutrophils Absolute Auto 5.62 K/uL (1.7-7.0); Neutrophils Percent Auto 68.8 % (42.0-72.0); Platelet Count* 518 K/uL (140-440); RDW Coefficient of Variation % 15.5 % (11.5-15.5); Red Blood Count 3.95 m/uL (4.00-5.20); White Blood Count* 8.17 K/uL (4.50-11.00)
[2023-11-19 13:50] LABS: Slide Review Reflex No
[2023-11-19 14:05] LABS: Chloride* 105 mmol/L (96-114)
[2023-11-19 14:06] LABS: Potassium* 3.9 mmol/L (3.6-5.1); Sodium* 140 mmol/L (135-149)
[2023-11-19 14:08] LABS: Creatinine* 0.5 mg/dL (0.5-1.5); Est. Creatinine Clearance* 44.54; Estimated Glomerular Filt Rate 102 ml/min
[2023-11-19 14:09] LABS: Alanine Aminotransferase* 19 U/L (4-35); Alkaline Phosphatase* 68 U/L (40-150); Anion Gap 10 mEq/L (7-15); Aspartate Amino Transferase* 47 U/L (12-35); Bilirubin Total* 0.4 mg/dL (0.1-1.5); Blood Urea Nitrogen* 16 mg/dL (7-30); Calcium* 9.4 mg/dL (8.4-10.6); Carbon Dioxide* 25 mmol/L (20-32); Creatine Kinase* 299 U/L (41-117); Glucose* 102 mg/dL (60-115); Total Protein* 7.6 g/dL (6.0-8.3)
[2023-11-19] MEDS: DAPTOmycin 50 MG/ML inj 500 MG IVP (14:10)
[2023-11-19 14:12] LABS: C Reactive Protein* 4.1 mg/dL (0.5-1.0)
[2023-11-20 12:55] VITALS: BP 138/79; PULSE 84; RESP 16; TEMP 36.4; O2SAT 93
[2023-11-20] MEDS: 0.9 % SODIUM CHLORIDE 250 ml IV (13:00)
[2023-11-20] MEDS: cefTRIAXone 2 GM in 0.9 % SODIUM CHLORIDE Mini-bag 100 ML IVPB (13:00)
[2023-11-20] MEDS: SODIUM CHLORIDE 0.9 % (FLUSH) 10 ML SYRINGE IVF (13:02)
[2023-11-20] MEDS: DAPTOmycin 50 MG/ML inj 500 MG IVP (13:39)
[2023-11-21 10:45] VITALS: BP 130/82; PULSE 82; RESP 20; TEMP 36.6; O2SAT 97
[2023-11-21] MEDS: DAPTOmycin 50 MG/ML inj 500 MG IVP (11:00)
[2023-11-21] MEDS: cefTRIAXone 2 GM in 0.9 % SODIUM CHLORIDE Mini-bag 100 ML IVPB (11:01)
--- NOTE | 2023-11-21 14:14 | PC.NURSE ---
shift note: picc line patent with flush. vss stable. pt tolerated infusion.
[2023-11-22 10:00] VITALS: BP 132/65; PULSE 68; RESP 18; TEMP 36.9; O2SAT 98
[2023-11-22] MEDS: DAPTOmycin 50 MG/ML inj 500 MG IVP (10:08)
[2023-11-22] MEDS: cefTRIAXone 2 GM in 0.9 % SODIUM CHLORIDE Mini-bag 100 ML IVPB (10:09)
[2023-11-22] MEDS: 0.9 % SODIUM CHLORIDE 250 ml IV (10:14)
--- NOTE | 2023-11-22 15:41 | PC.NURSE ---
shift note: picc line patent with flush. pt tolerated infusions w/o s/e.
[2023-11-23 13:00] VITALS: BP 133/82; PULSE 93; RESP 16; TEMP 36.2; O2SAT 95
[2023-11-23] MEDS: 0.9 % SODIUM CHLORIDE 250 ml IV (13:17)
[2023-11-23] MEDS: cefTRIAXone 2 GM in 0.9 % SODIUM CHLORIDE Mini-bag 100 ML IVPB (13:17)
[2023-11-23] MEDS: DAPTOmycin 50 MG/ML inj 500 MG IVP (14:02)
--- NOTE | 2023-11-23 14:57 | ONC.NURNOTE ---
Pt here for Daptomycin and Ceftriaxone. VSS. Pt states last 4 days she has been having low abd pain that radiates to hips and low back. Worse yesterday, and slightly better today. No nausea, having diarrhea twice a day. Instructed pt to notify surgeons office with concerns, chief underwriter offered to call surgeon's office as well and pt stated she would call. Inspector [employer] also mentioned if pain worsens she should be seen by primary care or emergency dept. Pt verbalized understanding of plan of care.
--- NOTE | 2023-11-24 09:56 | ONC.NURNOTE ---
Addendum entered by Ruthy Razo RN 11/25/23 09:31: Patient's spouse called office to let us know that patient has been admitted to hospital and will not be in for antibiotic. Spouse was informed that all appointments will be cancelled, and new orders will be due when she returns due to this hospitalization. Spouse is understanding of this and will contact us when patient is discharged. Original Note: Patient called stating on her way [employer] to be admitted
== END 2024-05-04 23:59 | disposition home or self-care (01) ==
LOC: CCIC 13:00
PROVIDERS: PCP Surgery; Referring Provider Surgery; Visit Provider Clinical Nurse Specialist
DX: Z79.2 Long term (current) use of antibiotics (principal)
CPT/HCPCS: 36415; 36589; 36592; 80053; 82550; 85025; 86140; 96365; 96376; 99211; G0463; A4221; J0696; J0878; J7050

== ENCOUNTER 2023-12-14 22:52 | Emergency (ER) | payer MEDICARE, BC, SELFPAY ==
[2023-12-14 23:00] VITALS: BP 161/98; PULSE 83; RESP 18; TEMP 37.1; O2SAT 97; BMI 35.4
--- NOTE | 2023-12-14 23:22 | ED_ITS ---
HPI - General Adult General Chief complaint: Unspecified Complaint, Adult Stated complaint: L arm pic line backed up, gets at home antibiotics Time Seen by Provider: 12/14/23 23:14 History of Present Illness HPI narrative: This patient comes in stating that her PICC line is not functioning properly. She states that she is getting doses of meropenem and vancomycin. She has been doing this for the past couple weeks. She does have a follow-up appointment with her doctor tomorrow. She arrives here with normal vital signs. Related Data Home Medications Medication Instructions Recorded Confirmed lovastatin 40 mg tablet 40 mg PO HS 07/01/22 11/08/23 levothyroxine 125 mcg tablet 125 mcg PO DAILY 02/03/23 11/08/23 omeprazole 20 mg capsule,delayed 20 mg PO DAILY 10/06/23 11/08/23 release ascorbic acid (vitamin C) 500 mg 1,000 mg PO DAILY 11/08/23 11/09/23 tablet,extended release (C Complex) calcium carbonate 600 mg-vitamin 1 tab PO BID 11/09/23 11/09/23 D3 10 mcg (400 unit) tablet (Calcium 600 + D(3)) meropenem 1 gram intravenous IV 12/14/23 solution vancomycin 5 gram intravenous g IV 12/14/23 solution Allergies Allergy/AdvReac Type Severity Reaction Status Date / Time hydrocodone Allergy Intermediate heart Verified 11/23/23 12:55 racing Review of Systems Status of ROS: Reports: 10 or more systems reviewed and unremarkable except as noted in History and below Narrative: Constitutional: No fevers, no weight gain or loss. Eyes: No discharge. No vision changes. HENT: No congestion, no sore throat, no ear pain. Cardiovascular: No chest pain, no palpitations. Respiratory: No shortness of breath, no wheezes, no cough. Gastrointestinal: No abdominal pain, no vomiting, no diarrhea. Genitourinary: No dysuria, no hematuria. Musculoskeletal: Normal range of motion. Skin: No rashes, no pruritis. Neurological: No dizziness, weakness, sensory change, speech change. Endo/Heme/Allergies: No bruising or bleeding. No polydipsia. Pysch: no suicidality, no anxiety, no insomnia. All other systems reviewed and are negative. [facility] Medical History Pain in lateral right lower extremity ?M79.604 - Pain in right leg (ICD-10) Osteopenia ?M85.80 - Other specified disorders of bone density and structure, unspecified site (ICD-10) Osteoarthritis of lumbar spine ?M47.816 - Spondylosis without myelopathy or radiculopathy, lumbar region (ICD-10) Normal Papanicolaou smear Mixed hyperlipidemia ?E78.2 - Mixed hyperlipidemia (ICD-10) Hypothyroidism ?E03.9 - Hypothyroidism, unspecified (ICD-10) History of amputation of right hand (1995) ?Z89.111 - Acquired absence of right hand (ICD-10) Gastroesophageal reflux disease with esophagitis ?K21.00 - Gastro-esophageal reflux disease with esophagitis, without bleeding (ICD-10) Amputation of right index finger ?S68.110A - Complete traumatic metacarpophalangeal amputation of right index finger, initial encounter (ICD-10) Surgical History S/P hardware removal ?Z98.890 - Other specified postprocedural states (ICD-10) H/O spinal fusion ?Z98.1 - Arthrodesis status (ICD-10) Status post tubal ligation ?Z98.51 - Tubal ligation status (ICD-10) History of lumpectomy of right breast ?Z98.890 - Other specified postprocedural states (ICD-10) History of colonoscopy (05/12/18) ?Z98.890 - Other specified postprocedural states (ICD-10) Family History Maternal Grandmother Breast cancer Diabetes Father Stroke Social History Narrative: Does not exercise Ex-smoker- quit 2017, 40 pack years , retired [employer], 3 adult kids Rarely consumes alcohol Stress due to illness of family member Smoking Status: Former smoker Do you use any of these nicotine containing products: None Second hand tobacco smoke exposure: No How often do you have a drink containing alcohol: never AUDIT-C Alcohol total score: 0 Non-prescribed substance use: denies use service: No Exam Narrative: Exam Narrative: Constitutional: Well-developed, well-nourished, no acute distress. HEENT: Normocephalic, atraumatic. Neck: Normal range of motion. Nontender. Supple. Heart: Regular. No murmurs. Normal rate. Intact distal pulses. Lungs: Clear to auscultation. No chest discomfort. No wheezes, rhonchi, or rales. Abdomen: Normal bowel sounds. Nontender. No rebound tenderness. Genitalia: Deferred. Back: No midline tenderness. Normal range of motion. Extremities: Normal range of motion. No injury. PICC line is inserted in the left antecubital fossa. Skin: Intact. No rash. Warm. No erythema or pallor. Neurologic: No altered sensation. No weakness. Alert and oriented. Psychiatric: No suicidality. No anxiety or depression. No insomnia. Nursing notes and vitals signs are reviewed. Const: Vital Signs, click to edit/add: Vital Signs - 24 hr 12/14/23 23:00 Temperature 98.8 F Pulse Rate [Pulse Oximeter] 83 Respiratory Rate 18 Blood Pressure [Le ft Forearm] 161/98 H Pulse Oximetry 97 Oxygen Delivery Me thod Room Air Course Vital Signs Vital signs: Initial Vital Signs Temperature 98.8 F 12/14/23 23:00 Temperature Source Temporal Artery Scan 12/14/23 23:00 Pulse Rate 83 12/14/23 23:00 Respiratory Rate 18 12/14/23 23:00 Blood Pressure 161/98 H 12/14/23 23:00 Blood Pressure Mean 119 H 12/14/23 23:00 Pulse Oximetry 97 12/14/23 23:00 Oxygen Delivery Method Room Air 12/14/23 23:00 Vital Signs Temperature 98.8 F 12/14/23 23:00 Pulse Rate 83 12/14/23 23:00 Respiratory Rate 18 12/14/23 23:00 Blood Pressure 161/98 H 12/14/23 23:00 Pulse Oximetry 97 12/14/23 23:00 Oxygen Delivery Method Room Air 12/14/23 23:00 Temperature 98.8 F 12/14/23 23:00 Pulse Rate 83 12/14/23 23:00 Respiratory Rate 18 12/14/23 23:00 Blood Pressure 161/98 H 12/14/23 23:00 Pulse Oximetry 97 12/14/23 23:00 Oxygen Delivery Method Room Air 01/23/24 23:00 Medical Decision Making MDM Narrative Medical decision making narrative: Attempt was made to draw from the patient's PICC line by using a syringe. There was no flow into the syringe. There is some sluggish movement of normal saline when injected into the PICC line. I stated to the patient that we do not manage PICC lines here and would need to call in a PICC line team if necessary. The patient does have an appointment with her physician tomorrow. She did receive an IV that she can go home with tonight in order to administer the vancomycin and meropenem until the appointment tomorrow. Discharge Plan Discharge Clinical Impression: Occluded PICC line Patient Disposition: Home w/ Parent or Adult Condition: Stable Additional Instructions: Use IV for administering medications until follow-up appointment with physician tomorrow as scheduled. Return if worsening. Prescriptions: No Action lovastatin 40 mg tablet 40 mg PO HS Hold Instructions: while getting IV abx levothyroxine 125 mcg tablet 125 mcg PO DAILY omeprazole 20 mg capsule,delayed release(DR/EC) 20 mg PO DAILY ascorbic acid (vitamin C) [C Complex] 500 mg tablet extended release 1,000 mg PO DAILY calcium carbonate-vitamin D3 [Calcium 600 + D(3)] 600 mg-10 mcg (400 unit) tablet 1 tab PO BID vancomycin 5 gram recon soln IV meropenem 1 gram recon soln IV Follow Up/Referrals: Thang Rubio MD [Primary Care Provider] - Stand Alone Forms: [employer] Info Instructions
[2023-12-14 23:55] VITALS: BP 141/84; PULSE 79; RESP 18; TEMP 37.1; O2SAT 97
== END 2023-12-14 23:56 | disposition home or self-care (01) ==
PROVIDERS: Emergency Provider Emergency Medicine Emergency Medical Services; PCP Surgery
DX: T82.594A Other mechanical complication of infusion catheter, initial encounter (principal)
CPT/HCPCS: 99282; 99283; 99284

== ENCOUNTER 2024-02-01 09:29 | Outpatient (CLI) | payer MEDICARE, BC, SELFPAY ==
--- NOTE | 2024-02-01 09:45 | US_ITS ---
Patient: JL HERNANDEZ Facility:?[facility] Patient ID:?[id number] Site Patient ID:?[id number] Site :?[id number] Study:?US-Abdomen RUQ-02/01/2024 2:04:46 PM Ordering Physician:ANAHI CAREY Final Report: INDICATION: Right upper quadrant abdomen pain. TECHNIQUE: Ultrasound abdomen limited. Sonographic images of the right upper quadrant were obtained using rodarte-scale and color Doppler images. COMPARISON: None. FINDINGS: Liver: Heterogeneous hepatic parenchyma. No suspicious masses. No intrahepatic biliary dilatation. Tiny right hepatic lobe cyst. Gallbladder: No stones or sludge. Normal wall thickness. No pericholecystic fluid. Negative sonographic Crocker`s sign. Common bile duct: 3 mm. Pancreas: Unremarkable. Right kidney: Normal in size. Normal echotexture and cortex. No suspicious masses, stones, or hydronephrosis. Vasculature: Obscured. IMPRESSION: No cholelithiasis, cholecystitis, or biliary obstruction. Heterogeneous hepatic parenchyma likely suggestive of chronic hepatocellular disease, including steatosis or cirrhosis. Dictated by Jian Diaz MD @ 02/10/2024 3:32:57 PM Signed by:?Jian Diaz MD @02/10/2024 3:32:57 PM (Electronic Signature)
== END 2024-02-01 09:30 | disposition home or self-care (01) ==
LOC: US 09:30
PROVIDERS: PCP Surgery; Visit Provider Internal Medicine
DX: R10.11 Right upper quadrant pain (principal); K76.0 Fatty (change of) liver, not elsewhere classified; R74.8 Abnormal levels of other serum enzymes
CPT/HCPCS: 76705

== ENCOUNTER 2024-03-28 08:07 | Outpatient (CLI) | payer MEDICARE, BC, SELFPAY | END 2024-03-28 08:08 | disposition home or self-care (01) | LOC: INJ CL 08:07 | PROVIDERS: PCP Surgery; Visit Provider Family Medicine | DX: M54.59 Other low back pain (principal); M51.36 Other intervertebral disc degeneration, lumbar region; G89.29 Other chronic pain | CPT/HCPCS: 20552; 77002; J0702; Q9966 ==

== ENCOUNTER 2024-06-03 10:52 | Emergency (ER) | payer MEDICARE, BC, SELFPAY ==
[2024-06-03 10:55] VITALS: BP 170/105; PULSE 90; RESP 18; TEMP 36.7; O2SAT 96; BMI 35.4
--- NOTE | 2024-06-03 11:20 | ED_ITS ---
HPI - General Adult General Time Seen by Provider: 11:20 Date Seen: 06/03/24 Chief complaint: Shortness of Breath/Dyspnea Stated complaint: shortness of breath, pain with breathing Time Seen by Provider: 06/03/24 11:19 Source: patient and RN notes reviewed Mode of arrival: ambulatory Limitations: no limitations History of Present Illness HPI narrative: This 69-year-old female is coming in with pleuritic chest pain throughout her whole chest that started this morning on awakening. She has had a couple days of cough, nasal congestion and sore throat without any fevers. She did do a COVID test at home last night and was negative. She is scheduled next week to have some hardware removed from her back from a previous spinal fusion. She has a history of smoking. She states that she does not carry a diagnosis of asthma or COPD but after a surgery where she was at [place], she was having these spells of sudden difficulty breathing that 1 doctor thought she had COPD. It sounds as if this was the only time this happened, she has not had formal PFTs from what I can discern from her history. Related Data Home Medications ?Medication ?Instructions ?Recorded ?Confirmed lovastatin 40 mg tablet 40 mg PO HS 07/01/22 05/17/24 levothyroxine 125 mcg tablet 125 mcg PO DAILY 02/03/23 05/17/24 omeprazole 20 mg capsule,delayed 20 mg PO DAILY 10/06/23 05/17/24 release ascorbic acid (vitamin C) 500 mg 1,000 mg PO DAILY 11/08/23 05/17/24 tablet,extended release (C Complex) calcium carbonate 600 mg-vitamin 1 tab PO BID 11/09/23 05/17/24 D3 10 mcg (400 unit) tablet (Calcium 600 + D(3)) Previous Rx's ?Medication ?Instructions ?Recorded amoxicillin 500 mg tablet 500 mg PO TID 7 days #21 tabs 06/03/24 azithromycin 250 mg tablet See Rx Instructions PO .COMPLEX #6 06/03/24 tabs Allergies Allergy/AdvReac Type Severity Reaction Status Date / Time amoxicillin [From Augmentin] Allergy Intermediate Verified 06/03/24 11:00 clavulanic acid Allergy Intermediate Verified 06/03/24 11:00 [From Augmentin] hydrocodone Allergy Intermediate heart Verified 05/22/24 10:59 racing Review of Systems Status of ROS: Reports: 6 or more systems reviewed and unremarkable except as noted in History and below [facility] Medical History Pain in lateral right lower extremity ?M79.604 - Pain in right leg (ICD-10) Osteopenia ?M85.80 - Other specified disorders of bone density and structure, unspecified site (ICD-10) Osteoarthritis of lumbar spine ?M47.816 - Spondylosis without myelopathy or radiculopathy, lumbar region (ICD-10) Normal Papanicolaou smear Mixed hyperlipidemia ?E78.2 - Mixed hyperlipidemia (ICD-10) Hypothyroidism ?E03.9 - Hypothyroidism, unspecified (ICD-10) Gastroesophageal reflux disease with esophagitis ?K21.00 - Gastro-esophageal reflux disease with esophagitis, without bleeding (ICD-10) Amputation of right index finger ?S68.110A - Complete traumatic metacarpophalangeal amputation of right index finger, initial encounter (ICD-10) Surgical History History of amputation of right hand (1995) ?Z89.111 - Acquired absence of right hand (ICD-10) S/P hardware removal ?Z98.890 - Other specified postprocedural states (ICD-10) H/O spinal fusion ?Z98.1 - Arthrodesis status (ICD-10) Status post tubal ligation ?Z98.51 - Tubal ligation status (ICD-10) History of lumpectomy of right breast ?Z98.890 - Other specified postprocedural states (ICD-10) History of colonoscopy (05/12/18) ?Z98.890 - Other specified postprocedural states (ICD-10) Family History Maternal Grandmother Breast cancer Diabetes Father Stroke Social History Narrative: Does not exercise Ex-smoker- quit 2017, 40 pack years , retired [employer], 3 adult kids Rarely consumes alcohol Stress due to illness of family member Smoking Status: Former smoker Do you use any of these nicotine containing products: None Second hand tobacco smoke exposure: No How often do you have a drink containing alcohol: never AUDIT-C Alcohol total score: 0 Non-prescribed substance use: denies use service: No Exam Const: Vital Signs, click to edit/add: Vital Signs - 24 hr 06/03/24 10:55 06/03/24 11:53 06/03/24 12:00 Temperature 98.1 F Pulse Rate 74 75 Pulse Rate [Pulse Oximeter] 90 Respiratory Rate 18 Blood Pressure [Le ft Upper Arm] 170/105 H Pulse Oximetry 96 96 98 Oxygen Delivery Me thod Room Air 06/03/24 12:15 06/03/24 12:30 Temperature Pulse Rate 75 76 Pulse Rate [Pulse Oximeter] Respiratory Rate Blood Pressure [Le ft Upper Arm] Pulse Oximetry 96 97 Oxygen Delivery Me thod Jl is a 69-year-old female that is alert, interactive, no apparent distress. No coughing while I was in with her. Speech is normal, no hoarseness. Pupils equal round reactive, sclera clear, symmetrical facial function. Neck supple, no adenopathy or masses, do not appreciate any jugular venous distension. Lungs are clear, good air entry, no wheezing or crackles, no tachypnea, no accessory muscle use. CV regular rate and rhythm, no murmur, normal S1-S2, no S3-S4. No lower extremity edema, no calf tenderness. Patient is ambulatory into the ED of her own accord. Documenting provider has reviewed patient's vital signs: yes Course Course ED Course: This is a 69-year-old female with pleuritic chest pain respiratory symptoms without any hypoxia. Pleurisy certainly is a possibility, underlying pneumonia or pulmonary changes are definitely possible. Previous creatinine clearance has her under 60, will get a basic metabolic panel at this time. With her upcoming surgery, she is to avoid NSAIDs. Did discuss with her NSAIDs are mainstay of treatment of pleurisy. Will consider other infectious etiology like pneumonia, will look at her troponin EKG just to ensure nothing like pericarditis or atypical presentation of acute ischemic disease. Will obtain a portable chest x-ray and basic labs as well. We discussed repeating the triple viral swab here to ensure no COVID her other identifiable viral pathogen, she does agree. Reevaluation(s) Time of Reevaluation #1: 13:24 Reevaluation #1: Reviewed that patient's chest x-ray showing no evidence of acute pneumonia at this time. Did offer CT imaging to further evaluate but I do not believe that is going to change my management. Her white blood count is elevated, C-reactive protein is elevated. There is a predominance of neutrophils. I do believe that she likely has early community-acquired pneumonia and I am willing to treat. She can take plain amoxicillin, she states she has taken it many times. Augmentin cause some liver enzyme changes for her and she avoids that. We discussed stool antibiotic treatment for early community acquired pneumonia for her. We will use amoxicillin and Z-Jonathan. She is comfortable with that. As far as her surgery, she is going to need to talk to the surgeon. Her EKG and troponin are normal, symptoms started this morning and solitary troponin after 3 hour interval is normal. Vital Signs Vital signs: Initial Vital Signs Temperature 98.1 F 06/03/24 10:55 Temperature Source Temporal Artery Scan 06/03/24 10:55 Pulse Rate 90 06/03/24 10:55 Pulse Rhythm Regular 06/03/24 10:55 Respiratory Rate 18 06/03/24 10:55 Blood Pressure 170/105 H 06/03/24 10:55 Blood Pressure Mean 126 H 06/03/24 10:55 Blood Pressure Position Supine 06/03/24 10:55 Pulse Oximetry 96 06/03/24 10:55 Oxygen Delivery Method Room Air 06/03/24 10:55 Vital Signs Temperature 98.1 F 06/03/24 10:55 Pulse Rate 90 06/03/24 10:55 Respiratory Rate 18 06/03/24 10:55 Blood Pressure 170/105 H 06/03/24 10:55 Pulse Oximetry 96 06/03/24 10:55 Oxygen Delivery Method Room Air 06/03/24 10:55 Temperature 98.1 F 06/03/24 10:55 Pulse Rate 76 06/03/24 12:30 Respiratory Rate 18 06/03/24 10:55 Blood Pressure 170/105 H 06/03/24 10:55 Pulse Oximetry 97 06/03/24 12:30 Oxygen Delivery Method Room Air 06/03/24 10:55 Medical Decision Making Lab Data Lab results reviewed: Yes I reviewed the patient's lab results Labs: Lab Results 06/03/24 06/03/24 Range/Units 11:36 11:43 WBC 13.44 H (4.50-11.00) K/uL RBC 4.43 (4.00-5.20) m/uL Hgb 13.3 (12.0-16.0) gm/dL Hct 41.6 (33.0-51.0) % MCV 94 (80-100) fL MCH 30 (26-34) pg MCHC 32 (32-36) gm/dL RDW Coeff of Megan 16.2 H (11.5-15.5) % Plt Count 272 (140-440) K/uL Neut % (Auto) 74.2 H (42.0-72.0) % Lymph % (Auto) 15.0 L (20-44) % [place] % (Auto) 8.6 (0.0-11.0) % Eos % (Auto) 1.7 (0.0-7.0) % Baso % (Auto) 0.3 (0.0-3.0) % Neut # (Auto) 10.00 H (1.7-7.0) K/uL Lymph # (Auto) 2.00 (0.90-2.90) K/uL [place] # (Auto) 1.20 H (0.00-0.90) K/UL Eos # (Auto) 0.20 (0.00-0.50) K/uL Baso # (Auto) 0.00 (0.00-0.30) K/uL Abs Immat Gran (auto) 0.00 (0.00-0.30) K/uL Imm/Tot Granulo (auto) 0.2 % Sodium 140 (135-149) mmol/L Potassium 4.3 (3.6-5.1) mmol/L Chloride 108 (96-114) mmol/L Carbon Dioxide 26 (20-32) mmol/L Anion Gap 6 L (7-15) mEq/L BUN 14 (7-30) mg/dL Creatinine 0.5 (0.5-1.5) mg/dL Estimated Creat Clear 45.85 Estimated GFR 101 ml/min Glucose 119 H (60-115) mg/dL Lactate 1.4 (0.5-1.9) mmol/L Calcium 9.0 (8.4-10.6) mg/dL Troponin I < 0.01 L (0.01-0.04) ng/mL C-Reactive Protein 3.5 H (0.5-1.0) mg/dL NT-Pro-B Natriuret Pep 363 pg/mL SARS-CoV-2 (PCR) Negative SARS-CoV-2 (Negative) Influenza Type A (PCR) Negative PCR FLU A (Negative) Influenza Type B (PCR) Negative PCR FLU B (Negative) RSV (PCR) Negative PCR RSV (Negative) Imaging Data Chest x-ray: Attestation: I have reviewed the pertinent imaging results. My impression: I do not appreciate any acute infiltrate on my preliminary review. Radiologist's impression: Patient: JL HERNANDEZ Facility:?[facility] Patient ID:?[id number] Site Patient ID:?[id number]. Site :?[id number] Study:?XRay-Chest Portable-06/03/2024 11:51:31 AM Ordering Physician:Efrain Magdaleno Final Report: INDICATION: Pleuritic chest pain TECHNIQUE: Chest x-ray, one view COMPARISON: None. FINDINGS: The heart is normal in size. The pulmonary vasculature is within normal limits. The lungs are clear. Negative for focal consolidation, pleural effusion or pneumothorax. Bones are unremarkable. IMPRESSION: No acute process. Dictated by Mary Laguerre MD @ 06/03/2024 12:37:55 PM (Electronic Signature) ECG Data Attestation: I personally reviewed and interpreted this ECG as follows: (Normal sinus rhythm, 80 beats per minute. Possible voltage criteria for LVH in aVL. Q waves in lateral precordial leads V4 through V5 but normal upright T-waves and no acute ST segment elevation.) Prior ECG tracings: not available for review Discharge Plan Discharge Clinical Impression: Acute pleurisy without pleural effusion Community acquired pneumonia Qualifiers: Laterality: unspecified laterality Qualified Code(s): J18.9 - Pneumonia, unspecified organism Patient Disposition: Home, Self-Care Condition: Stable Instructions: Pleurisy (ED), Community Acquired Pneumonia (ED) Additional Instructions: Start oral antibiotics and take both as prescribed, important to complete them. Use Tylenol per bottle directions as needed for pain management. You need to talk to your surgeon on Wednesday to see what their feelings are proceeding if you are improving on antibiotics. If you are not improving, feel you are worsening or develop new or concerning symptoms, need to return to the emergency room for further evaluation. If you do not end up having surgery, can consider some o [id number] ibuprofen as this gives the best relief from pleurisy. Activity Level: Activity as Tolerated Discharge Diet: Regular Prescriptions: New amoxicillin 500 mg tablet 500 mg PO TID 7 Days Qty: 21 0RF azithromycin 250 mg tablet See Rx Instructions .ROUTE .COMPLEX Qty: 6 0RF Rx Instructions: For 250 mg dose pack: take 500 mg today (day 1), then 250 mg for 4 days (days 2-5) No Action lovastatin 40 mg tablet 40 mg PO HS Hold Instructions: while getting IV abx levothyroxine 125 mcg tablet 125 mcg PO DAILY omeprazole 20 mg capsule,delayed release(DR/EC) 20 mg PO DAILY ascorbic acid (vitamin C) [C Complex] 500 mg tablet extended release 1,000 mg PO DAILY calcium carbonate-vitamin D3 [Calcium 600 + D(3)] 600 mg-10 mcg (400 unit) tablet 1 tab PO BID Follow Up/Referrals: Thang Rubio MD [Primary Care Provider] - Stand Alone Forms: [employer] Info Instructions
--- NOTE | 2024-06-03 11:32 | CRLHL7_ITS ---
For Patients: As a result of the Century Cures Act, medical imaging exams and procedure reports are released immediately into your electronic medical record. You may view this report before your referring provider. If you have questions, please contact your health care provider. INDICATION: Pleuritic chest pain TECHNIQUE: Chest x-ray, one view COMPARISON: None. FINDINGS: The heart is normal in size. The pulmonary vasculature is within normal limits. The lungs are clear. Negative for focal consolidation, pleural effusion or pneumothorax. Bones are unremarkable. IMPRESSION: No acute process. Dictated by Mary Laguerre MD @ 06/03/2024 12:37:55 PM (Electronically Signed)
[2024-06-03 11:51] LABS: Lactate* 1.4 mmol/L (0.5-1.9)
[2024-06-03 11:53] VITALS: PULSE 74; O2SAT 96
[2024-06-03 11:56] LABS: Basophils Percent Auto 0.3 % (0.0-3.0); Eosinophils Percent Auto 1.7 % (0.0-7.0); Hematocrit 41.6 % (33.0-51.0); Hemoglobin* 13.3 gm/dL (12.0-16.0); Immature Granulocytes Pct Auto 0.2 %; Mean Corpuscular HGB Conc 32 gm/dL (32-36); Mean Corpuscular Hemoglobin 30 pg (26-34); Mean Corpuscular Volume 94 fL (80-100); Monocytes Percent Auto 8.6 % (0.0-11.0); Neutrophils Percent Auto 74.2 % (42.0-72.0); Platelet Count* 272 K/uL (140-440); RDW Coefficient of Variation % 16.2 % (11.5-15.5); Red Blood Count 4.43 m/uL (4.00-5.20); White Blood Count* 13.44 K/uL (4.50-11.00)
[2024-06-03 11:58] LABS: Slide Review Reflex No
[2024-06-03 12:00] VITALS: PULSE 75; O2SAT 98
[2024-06-03 12:07] LABS: Chloride* 108 mmol/L (96-114)
[2024-06-03 12:08] LABS: Potassium* 4.3 mmol/L (3.6-5.1); Sodium* 140 mmol/L (135-149)
[2024-06-03 12:10] LABS: Creatinine* 0.5 mg/dL (0.5-1.5); Est. Creatinine Clearance* 45.85; Estimated Glomerular Filt Rate 101 ml/min
[2024-06-03 12:11] LABS: Anion Gap 6 mEq/L (7-15); Blood Urea Nitrogen* 14 mg/dL (7-30); Carbon Dioxide* 26 mmol/L (20-32); Glucose* 119 mg/dL (60-115)
[2024-06-03 12:14] LABS: C Reactive Protein* 3.5 mg/dL (0.5-1.0)
[2024-06-03 12:15] VITALS: PULSE 75; O2SAT 96
[2024-06-03 12:26] LABS: NT Pro B Type NatriureticPept* 363 pg/mL; Troponin I* < 0.01 ng/mL (0.01-0.04)
[2024-06-03 12:30] VITALS: PULSE 76; O2SAT 97
[2024-06-03 12:33] LABS: PCR FLU A Negative PCR FLU A (Negative); PCR FLU B Negative PCR FLU B (Negative); PCR RSV Negative PCR RSV (Negative); SARS PCR* Negative SARS-CoV-2 (Negative)
== END 2024-06-03 13:38 | disposition home or self-care (01) ==
PROVIDERS: Emergency Provider Family Medicine; PCP Surgery
DX: J18.9 Pneumonia, unspecified organism (principal)
CPT/HCPCS: 36415; 71045; 80048; 83605; 83880; 84484; 85025; 86140; 87631; 93005; 94761; 99284

== ENCOUNTER 2025-06-05 10:01 | Outpatient (CLI) | payer MEDICARE, BC, SELFPAY ==
--- NOTE | 2025-06-05 10:15 | CRLHL7_ITS ---
For Patients: As a result of the Century Cures Act, medical imaging exams and procedure reports are released immediately into your electronic medical record. You may view this report before your referring provider. If you have questions, please contact your health care provider. INDICATION: Lumbar radiculopathy. TECHNIQUE: Multisequence multiplanar MRI of the lumbar spine prior to and following administration of 20 cc Dotarem gadolinium based intravenous contrast. COMPARISON: Correlated with CT lumbar spine dated 07/29/2023. FINDINGS: Operative changes of posterior and interbody fusion from L4-S1 with decompressive laminectomy. Similar slight degenerative retrolisthesis at L2-L3 and L3-L4. Vertebral body heights are maintained. There has been worsening of severe disc height loss at L3-L4. The conus medullaris terminates normally at the L1 level. No abnormal enhancement is definitely identified. A small T2 hyperintense fluid collection extending within the laminectomy bed at the upper L5 level (series 6, image 30). Few bilateral renal parenchymal hyperintensities are not adequately characterized but most typical for cysts. T12-L1: No significant spinal canal or neural foraminal stenosis. L1-L2: Shallow symmetric disc bulge. No significant spinal canal or neural foraminal stenosis. L2-L3: Symmetric disc bulge and posterior endplate osteophytic ridging. Mild facet joint arthrosis. Mild spinal canal stenosis and bilateral neural foraminal narrowing. L3-L4: Symmetric disc bulge and posterior endplate osteophytic ridging. Moderate facet joint arthrosis. Moderate spinal canal stenosis, moderate-severe right neural foraminal, and mild left neural foraminal narrowing. L4-L5: Postsurgical changes. Patent thecal sac. No high-grade spinal canal or neural foraminal stenosis. L5-S1: Postsurgical changes. Patent thecal sac. No high-grade spinal canal or neural foraminal stenosis. IMPRESSION: 1. Operative changes of posterior and interbody fusion from L4-S1 with decompressive laminectomy. 2. Small T2 hyperintense fluid collection within the laminectomy bed at the upper L5 level. 3. No convincing focus of abnormal enhancement or evidence of infection within the lumbar spine. 4. At L2-L3, mild spinal canal stenosis. 5. At L3-L4, worsening of severe disc height loss, moderate spinal canal stenosis, and moderate-severe right neural foraminal narrowing. Dictated by Cuate Castro MD @ 06/06/2025 9:58:01 AM (Electronically Signed)
== END 2025-06-05 10:02 | disposition home or self-care (01) ==
LOC: MRI 10:04
PROVIDERS: PCP Surgery; Visit Provider Family Medicine
DX: M54.16 Radiculopathy, lumbar region (principal); M47.816 Spondylosis without myelopathy or radiculopathy, lumbar region; M48.061 Spinal stenosis, lumbar region without neurogenic claudication; M51.26 Other intervertebral disc displacement, lumbar region
CPT/HCPCS: 72158; A9575

== ENCOUNTER 2025-09-25 10:23 | Outpatient (CLI) | payer MEDICARE, BC, SELFPAY | END 2025-09-25 10:24 | disposition home or self-care (01) | LOC: INJ CL 10:23 | PROVIDERS: PCP Surgery; Visit Provider Family Medicine | DX: M53.3 Sacrococcygeal disorders, not elsewhere classified (principal) | CPT/HCPCS: 27096; J0702; Q9966 ==

== ENCOUNTER 2025-09-30 10:18 | Outpatient (CLI) | payer MEDICARE, BC, SELFPAY ==
[2025-09-30 11:07] LABS: PCR FLU A Negative PCR FLU A (Negative); PCR FLU B Negative PCR FLU B (Negative); PCR RSV Negative PCR RSV (Negative); SARS PCR* Negative SARS-CoV-2 (Negative)
== END 2025-09-30 10:19 | disposition home or self-care (01) ==
LOC: NFLDUCREF 10:19
PROVIDERS: PCP Surgery; Visit Provider Physician Assistant
DX: R05.9 Cough, unspecified (principal)
CPT/HCPCS: 87631